=== PATIENT | female | born 1975 | race African-American/Black ===

== ENCOUNTER 2018-07-26 15:09 | Emergency (ER) | payer MEDICAID ==
[~2018-07-26] VITALS: Ht 167.6 cm; Wt 112.0 kg
[2018-07-26] MEDS ORDERED: OXYCODONE HCL/ACETAMINOPHEN 5/325MG TABLET PO ONE (22:15)
[2018-07-26] MEDS ORDERED: LIDOCAINE HCL/PF 1% 10 MG/ML 5ML VIAL IJ ONE (22:15)
[2018-07-27] MEDS ORDERED: OXYCODONE HCL/ACETAMINOPHEN 5/325MG TABLET PO ONE (00:15)
[2018-07-27 00:26] VITALS: BP 129/92
== END 2018-07-27 00:26 | disposition home or self-care (01) ==
LOC: ER 15:09
DX: L02.31 Cutaneous abscess of buttock (principal)
CPT/HCPCS: 10060; 99283; J3490; Z7610

== ENCOUNTER 2019-05-23 09:45 | Emergency (ER) | payer MEDICAID ==
[~2019-05-23] VITALS: Ht 167.6 cm; Wt 111.0 kg
[2019-05-23 10:11] VITALS: BP 136/98
== END 2019-05-23 10:46 | disposition home or self-care (01) ==
LOC: ER 09:58
DX: L02.31 Cutaneous abscess of buttock (principal); R03.0 Elevated blood-pressure reading, without diagnosis of hypertension
CPT/HCPCS: 99283; Z7610

== ENCOUNTER 2019-05-29 07:58 | Emergency (ER) | payer MEDICAID ==
[~2019-05-29] VITALS: Ht 165.1 cm; Wt 111.0 kg
[2019-05-29] MEDS ORDERED: ONDANSETRON 4MG ODT PO ONE (08:45)
[2019-05-29] MEDS ORDERED: HYDROCODONE/ACETAMINOPHEN 5/325MG TABLET PO ONE (08:45)
[2019-05-29] MEDS ORDERED: KETOROLAC 60MG/2ML VIAL IM ONE (08:45)
[2019-05-29] MEDS ORDERED: LIDOCAINE HCL/PF 1% 10 MG/ML 5ML VIAL IJ ONE (09:30)
[2019-05-29 09:34] VITALS: BP 115/80
== END 2019-05-29 09:30 | disposition home or self-care (01) ==
LOC: ER 07:58
DX: K61.1 Rectal abscess (principal)
CPT/HCPCS: 10060; 87070; 87077; 87186; 87205; 96372; 99283; J1885; Q0162

== ENCOUNTER 2019-05-31 09:13 | Emergency (ER) | payer MEDICAID ==
[~2019-05-31] VITALS: Ht 170.2 cm; Wt 111.0 kg
[2019-05-31] MEDS ORDERED: HYDROCODONE/ACETAMINOPHEN 5/325MG TABLET PO ONE (10:15)
[2019-05-31 11:20] VITALS: BP 129/48
== END 2019-05-31 11:23 | disposition home or self-care (01) ==
LOC: ER 10:03
DX: Z48.01 Encounter for change or removal of surgical wound dressing (principal); Z98.890 Other specified postprocedural states
CPT/HCPCS: 99283; Z7610

== ENCOUNTER 2019-06-04 08:38 | Emergency (ER) | payer MEDICAID ==
[~2019-06-04] VITALS: Ht 172.7 cm; Wt 113.7 kg
[2019-06-04 12:00] VITALS: BP 130/91
== END 2019-06-04 12:00 | disposition home or self-care (01) ==
LOC: ER 08:38
DX: Z48.01 Encounter for change or removal of surgical wound dressing (principal)
CPT/HCPCS: 99281; 99282

== ENCOUNTER 2019-10-07 11:37 | Emergency (ER) | payer MEDICAID ==
[~2019-10-07] VITALS: Ht 167.6 cm; Wt 107.0 kg
[2019-10-07 11:45] VITALS: BP 126/81
== END 2019-10-07 12:29 | disposition home or self-care (01) ==
LOC: ER 11:37
DX: L03.317 Cellulitis of buttock (principal); R03.0 Elevated blood-pressure reading, without diagnosis of hypertension
CPT/HCPCS: 99283